=== PATIENT | female | born 2005 | race Caucasian/White ===

== ENCOUNTER 2023-08-04 12:03 | Outpatient (OUT) | payer OTHER, SELFPAY | END 2023-08-04 12:04 | disposition home or self-care (01) | LOC: LAB 12:08 | PROVIDERS: PCP Family Medicine; Visit Provider Midwife | DX: O26.892 Other specified pregnancy related conditions, second trimester (principal); Z67.91 Unspecified blood type, Rh negative | CPT/HCPCS: 36415; 86850; 86900; 86901 ==

== ENCOUNTER 2023-08-09 10:29 | Outpatient (OUT) | payer OTHER, SELFPAY ==
[2023-08-08 09:15] VITALS: BP 107/70; PULSE 73; RESP 16; TEMP 36.4; O2SAT 98
[2023-08-08] MEDS: RHO(D) IMMUNE GLOBULIN 1,500 UNIT SYRINGE 1500 UNIT IM (09:31)
--- NOTE | 2023-08-08 09:50 | PC.NURSE ---
0931: Pt. medicated with Rhophylac 300mcg IM as ordered. Trace bleeding to injection site. Bandaid applied. Pt. given explanation on purpose of Rhogam, questions addressed. Pt. given water. Reminded of need for brief observation after injection. Pt. relays understanding. 0950: Pt. without s&s of adverse reaction. No new bleeding to injection site. Pt. d/c'd amb. to home.
== END 2023-08-09 10:30 | disposition home or self-care (01) ==
LOC: INF 10:29
PROVIDERS: PCP Family Medicine; Visit Provider Midwife
DX: O26.899 Other specified pregnancy related conditions, unspecified trimester (principal); Z67.91 Unspecified blood type, Rh negative; Z3A.00 Weeks of gestation of pregnancy not specified
CPT/HCPCS: 96372; J2790

== ENCOUNTER 2023-10-19 23:01 | Inpatient (IN) | payer OTHER, SELFPAY ==
[2023-10-19 23:05] VITALS: BP 111/70; PULSE 98
[2023-10-19 23:12] VITALS: BP 110/73; PULSE 93; TEMP 37.3
[2023-10-19 23:41] VITALS: BP 121/66; PULSE 86
[2023-10-19] MEDS: 0.9 % SODIUM CHLORIDE 1,000 ML 125 ML IV (23:43)
[2023-10-19 23:56] LABS: Hematocrit 33.4 % (36.0-48.0); Hemoglobin 11.3 g/dL (12.0-16.0); Mean Corpuscular HGB Conc 33.8 g/dL (29.9-35.2); Mean Corpuscular Hemoglobin 30.1 pg (26.7-34.0); Mean Corpuscular Volume 89.1 fL (81.0-99.0); Mean Platelet Volume 9.4 fL (9.5-13.5); Platelet Count 315 10^3/uL (150-450); Red Blood Count 3.75 10^6/uL (4.20-5.40); Red Cell Distribution Width 13.4 % (11.0-15.0); White Blood Count 16.6 10^3/uL (4.0-11.0)
[2023-10-20] VITALS (21 sets, daily range): BP systolic 106–126; BP diastolic 55–74; PULSE 80–109; RESP 16–17; TEMP 36.3–37.3
[2023-10-20] MEDS: OXYTOCIN/0.9 % SODIUM CHLORIDE 20 UNITS/1,000 ML PLAST..BAG 125 UNIT IV (01:31)
[2023-10-20] MEDS: METHYLERGONOVINE MALEATE 0.2 MG/ML AMPULE IM (01:35)
[2023-10-20] MEDS: LIDOCAINE HCL 1% 200 MG/20 ML MDV INJ (01:39)
[2023-10-20] MEDS: LIDOCAINE VISCOUS 2% 15 ML SOLUTION 5 ML TOPICAL (01:40)
--- NOTE | 2023-10-20 02:05 | P.OBHP_ITS ---
OB - H&P: HPI History of Present Illness Chief complaint: labor : 1 Para: 0 Gestational age based on last menstrual period: 39.3 History of Present Dating criteria: LMP confirmed by 1st trimester US care: good care Ultrasounds: normal 1st trimester US and normal mid trimester US complications comment: none Medical complications OB: none Labs Blood type: A (-) negative Rubella: immune RPR/VDLR: nonreactive GBS status: negative HBsAG: negative Review of Systems ROS Status of ROS 10 or more systems reviewed and unremarkable except as noted in history and below Meds Home Medications and Allergies Allergies Allergy/AdvReac Type Severity Reaction Status Date / Time amoxicillin Allergy Mild Rash Verified 10/20/23 01:44 Exam Constitutional Vital Signs, click to edit/add: Last Vital Signs Temp 99.1 F 10/20/23 01:37 Pulse 104 H 10/20/23 01:54 BP 123/72 10/20/23 01:54 Documenting provider has reviewed patient's vital signs: yes General appearance: cooperative and comfortable Orientation/consciousness: Yes awake, Yes oriented to person, Yes oriented to place and Yes oriented to time HENMT Common normals: normocephalic Eye Common normals: PERRL Neck & C-Spine Common normals: full ROM and no lymphadenopathy Lymph Lymphatic: no lymphadenopathy noted Chest Common normals: inspection of chest normal Respiratory Common normals: normal respiratory effort, no retractions and clear to auscultation bilaterally Cardio Common normals: regular rate, regular rhythm and no murmurs GI Common normals: Normal to inspection, nondistended, normoactive bowel sounds pr esent Palpation: soft Common normals: no CVA tenderness Back & Pelvis Common normals: no CVA tenderness Extremity Common normals: normal to inspection, full ROM and no calf tenderness Neuro Common normals: oriented x3 and moves all extremities Sensorium/orientation: awake, alert, oriented to person, oriented to place and oriented to time Psych Common normals: mental status grossly normal, thought process normal and cooperative Results Labs Labs: Short CBC 10/19/23 Range/Units 23:50 WBC 16.6 H (4.0-11.0) 10^3/uL Hgb 11.3 L (12.0-16.0) g/dL Hct 33.4 L (36.0-48.0) % Plt Count 315 (150-450) 10^3/uL OB - A/P Assessment and Plan (1) Term : Plan Admit for labor and delivery
[2023-10-20] MEDS: KETOROLAC TROMETHAMINE 30 MG/ML VIAL IVP (02:19)
--- NOTE | 2023-10-20 02:23 | P.EN_ITS ---
Event Note Event Note: 2313 10-19-23 phone call to my cell from [facility] stating one of your patients is here, she arrived by squad. She had intercourse tonight at 8:00 pm and around 10:00 pm states she went to the bathroom and her water broke. She started immediately with contractions and family became nervous and called 911 and the EMS squad brought her to the hospital. RN reports to me that patient is 6-7/100/-1 and would like to me come to the hospital. CNM to unit and patient assessed. SVE complete with strong desire to push. See delivery note
--- NOTE | 2023-10-20 02:27 | PM.OBPRCVD ---
Procedure Procedure: with repair of second degree perineal laceration and repair of bilateral labial Induction method: none Delivery monitor: external FHT and external uterine Route of delivery: Episiotomy Description: none Laceration description: labial (bilateral labial repair) Delivery repair: Vicryl Estimated blood loss (mL): 350 Anesthesia type: Local Disposition: no change Complications: IV was not running at delivery so unable to administer IV Pitocin. RN attempted to restart IV x2. I ordered IM Methergine 0.2 mg. IV then restarted in her right forearm and Pitocin infusing without difficulty. Infant Delivery date: 10/19/23 Gender: female presentation: vertex Placental delivery description: Spontaneous cord description: 3 Vessels heart rate - 1 minute: 100 bpm or Greater respiratory effort - 1 minute: Spontaneous/Strong Cry muscle tone - 1 minute: Active Movement reflex response - 1 minute: Prompt Response color - 1 minute: Pallor or Cyanosis total score - 1 minute: 8 heart rate - 5 minute: 100 bpm or Greater respiratory effort - 5 minute: Spontaneous/Strong Cry muscle tone - 5 minute: Active Movement reflex response - 5 minute: Prompt Response color - 5 minute: Bluish Hands or Feet total score - 5 minute: 9
[2023-10-20] MEDS: BENZOCAINE/MENTHOL 85 GRAM SPRAY BOTTLE 1 APPLIC TOPICAL (05:17)
[2023-10-20] MEDS: GLYCERIN/WITCH HAZEL PADS 1 PAD TOPICAL (05:18)
[2023-10-20] MEDS: IBUPROFEN 400 MG TABLET 800 MG PO ×2 (10:38→17:40)
[2023-10-20 11:03] LABS: Cannabinoid Screen Urine NEGATIVE (NEGATIVE); Cocaine Screen Urine NEGATIVE (NEGATIVE); Methamphetamines Screen Urine NEGATIVE (NEGATIVE); Opiate Screen Urine NEGATIVE (NEGATIVE); Phencyclidine Screen Urine NEGATIVE (NEGATIVE)
[2023-10-20 11:04] LABS: Amphetamine Screen Urine NEGATIVE (NEGATIVE); Barbiturates Screen Urine NEGATIVE (NEGATIVE); Benzodiazepines Screen Urine NEGATIVE (NEGATIVE); Buprenorphine Screen Urine NEGATIVE (NEGATIVE); Methadone Screen Urine NEGATIVE (NEGATIVE); Oxycodone Screen Urine NEGATIVE (NEGATIVE); Tricyclic Antidepressant Urine NEGATIVE (NEGATIVE)
[2023-10-21] MEDS: IBUPROFEN 400 MG TABLET 800 MG PO (03:55)
[2023-10-21 05:08] LABS: Basophils Absolute Auto 0.1 10^3/uL (0.0-0.1); Basophils Percent Auto 0.4 % (0.2-2.0); Eosinophils Absolute Auto 0.2 10^3/uL (0.0-0.7); Eosinophils Percent Auto 1.4 % (0.9-7.0); Hematocrit 29.8 % (36.0-48.0); Hemoglobin 9.7 g/dL (12.0-16.0); Immature Granulocytes Abs Auto 0.09 10^3/uL (0.00-0.03); Immature Granulocytes Pct Auto 0.7 % (0.0-0.5); Lymphocytes Absolute Auto 3.7 10^3/uL (1.2-3.8); Mean Corpuscular HGB Conc 32.6 g/dL (29.9-35.2); Mean Corpuscular Hemoglobin 29.8 pg (26.7-34.0); Mean Corpuscular Volume 91.7 fL (81.0-99.0); Mean Platelet Volume 9.6 fL (9.5-13.5); Monocytes Absolute Auto 0.9 10^3/uL (0.3-0.8); Neutrophils Absolute Auto 8.2 10^3/uL (1.4-6.5); Neutrophils Percent Auto 62.5 % (43.0-75.0); Platelet Count 268 10^3/uL (150-450); Red Blood Count 3.25 10^6/uL (4.20-5.40); Red Cell Distribution Width 13.8 % (11.0-15.0)
--- NOTE | 2023-10-21 07:28 | P.OBPN_ITS ---
OB - PN: Subj Subjective Patient comments: no complaints and pain well controlled [place] status: doing well Exam Constitutional Vital Signs, click to edit/add: Last Vital Signs Temp 98.1 F 10/20/23 23:30 Pulse 80 10/20/23 23:38 Resp 16 10/20/23 23:30 BP 106/58 10/20/23 23:38 O2 Del Method Room Air 10/20/23 23:30 Documenting provider has reviewed patient's vital signs: yes Common normals: no apparent distress Respiratory Common normals: normal respiratory effort and clear to auscultation bilaterally Cardio Common normals: regular rate and regular rhythm GI Common normals: Normal to inspection, nondistended, normoactive bowel sounds present Extremity Common normals: no clubbing, cyanosis or edema Results Labs Labs: Short CBC 10/21/23 Range/Units 04:47 WBC 13.0 H (4.0-11.0) 10^3/uL Hgb 9.7 L (12.0-16.0) g/dL Hct 29.8 L (36.0-48.0) % Plt Count 268 (150-450) 10^3/uL OB - PN: A/P Assessment and Plan (1) Term : Plan - Vaginal Delivery day: 1 Plan: routine care Time Spent with Patient Time: Total time spent is greater than 50% in coordination of care (as documented) at patient's floor/unit and/or counseling patient: Total time spent with greater than 50% in coordination of care (as documented) at patient's floor/unit and/or counseling patient: less than 15 minutes
[2023-10-21 09:22] VITALS: BP 124/58; PULSE 89; RESP 16; TEMP 36.4
[2023-10-21] MEDS: DOCUSATE SODIUM 100 MG CAPSULE PO ×2 (09:25→21:36)
[2023-10-21 16:34] VITALS: BP 96/55; PULSE 109; RESP 16; TEMP 36.4
--- NOTE | 2023-10-21 19:33 | W.PC.ACHO ---
Registration Status: ADM IN Primary Language: Iraqi Preferred Language: Iraqi Active Medications Generic Name Dose Route Start Last Admin Trade Name Freq PRN Reason Stop Dose Admin Acetaminophen 650 mg 10/20/23 02:35 Acetaminophen 325 Mg Tablet PO Q6H PRN Mild Pain Al Hydroxide/Mg Hydroxide 2,400 mg 10/20/23 02:40 Magnesium Hydroxide 2,400 Mg/10 Ml Oral.Susp PO Q6H PRN Dyspepsia Benzocaine/Menthol 1 applic 10/20/23 02:40 10/20/23 05:17 Benzocaine/Menthol 85 Gram [place] Bottle TOPICAL 1 applic Q2H PRN Administration Pain Diphtheria/Pertussis/Tetanus Vacc 0.5 ml 10/22/23 09:00 Adacel Diph,Pertuss(Acell),Tet Vac/Pf 0.5 Ml Adult Syringe IM 10/22/23 09:01 .ONCE ONE Docusate Sodium 100 mg 10/21/23 09:00 10/21/23 09:25 Docusate Sodium 100 Mg Capsule PO 100 mg BID ROXANNE Administration Sodium Chloride 1,000 mls @ 125 mls/hr 10/19/23 23:30 10/19/23 23:43 Sodium Chloride 0.9% 1,000 Ml IV 125 mls/hr .Q8H ROXANNE Administration Ibuprofen 800 mg 10/20/23 10:00 10/21/23 03:55 Ibuprofen 400 Mg Tablet PO 800 mg Q8H ROXANNE Administration Measles/Mumps/Rubella Vaccine Live 0.5 ml 10/22/23 09:00 Measles,Mumps,Rubella Vacc/Pf 0.5 Ml Vial SQ 10/22/23 09:01 .ONCE ONE Ondansetron HCl 4 mg 10/19/23 23:21 Ondansetron Pf 4 Mg/2 Ml Vial IV Q6H PRN Nausea And Vomiting Ondansetron HCl 4 mg 10/19/23 23:21 Ondansetron 4 Mg Rapdis Tablet SL Q6H PRN Nausea And Vomiting Senna 17.2 mg 10/20/23 20:00 Sennosides 8.6 Mg Tablet PO QHS PRN Constipation Simethicone 80 mg 10/20/23 02:40 Simethicone 80 Mg Tab.Chew PO QID PRN Abdominal Distention Temazepam 15 mg 10/20/23 02:40 Temazepam 15 Mg Capsule PO QHS PRN Sleep Witch Gris/Glycerin 1 pad 10/20/23 02:40 10/20/23 05:18 Glycerin/Witch Gris Pads TOPICAL 1 pad Q2H PRN Administration Pain Respiratory Oxygen Delivery Method Room Air Oxygen Delivery Method Room Air Bowels Bowel Pattern No Bowel Movement
[2023-10-21 23:27] VITALS: BP 117/70; PULSE 104
[2023-10-21 23:42] VITALS: RESP 16; TEMP 37.2
--- NOTE | 2023-10-22 07:18 | PC.NURSE ---
Report given to Kate Arndt RN
[2023-10-22 08:24] VITALS: BP 113/56; PULSE 87
[2023-10-22 08:25] VITALS: RESP 14; TEMP 36.7
--- NOTE | 2023-10-22 09:06 | P.OBPN_ITS ---
OB - PN: Subj Subjective Patient comments: no complaints and pain well controlled [place] status: doing well Exam Constitutional Vital Signs, click to edit/add: Last Vital Signs Temp 98.1 F 10/22/23 08:25 Pulse 87 10/22/23 08:24 Resp 14 10/22/23 08:25 BP 113/56 10/22/23 08:24 O2 Del Method Room Air 10/22/23 08:25 Documenting provider has reviewed patient's vital signs: yes Common normals: no apparent distress Respiratory Common normals: normal respiratory effort and clear to auscultation bilaterally Cardio Common normals: regular rate and regular rhythm GI Common normals: Normal to inspection, nondistended, normoactive bowel sounds present Extremity Common normals: no clubbing, cyanosis or edema and no calf tenderness OB - PN: A/P Assessment and Plan (1) Term : Plan - Vaginal Delivery day: 2 Plan: routine care, discharge home and follow up 6 weeks Time Spent with Patient Time: Total time spent is greater than 50% in coordination of care (as documented) at patient's floor/unit and/or counseling patient: Total time spent with greater than 50% in coordination of care (as documented) at patient's floor/unit and/or counseling patient: less than 15 minutes
== END 2023-10-22 13:20 | disposition home or self-care (01) | DRG 560 ==
PROVIDERS: Admitting Provider Midwife; PCP Family Medicine; Visit Provider Midwife
DX: O26.893 Other specified pregnancy related conditions, third trimester (principal); O70.1 Second degree perineal laceration during delivery; Z3A.39 39 weeks gestation of pregnancy; Z37.0 Single live birth; Z67.11 Type A blood, Rh negative
CPT/HCPCS: 36415; 80307; 85025; 85027; 86850; 86900; 86901; 96372; 96374; 96375

== ENCOUNTER 2023-10-24 08:24 | Outpatient (OUT) | payer OTHER, SELFPAY ==
--- NOTE | 2023-10-24 17:23 | PC.NURSE ---
New family arrives for follow up. Parents admit to being tired and she doesn't like to be put down States has good support at home so are managing well. Mom has no physical complaints and assessment WNL. Milk came in sometime during the night Breasts are firm full feeling and softer after feeding . Type II breast shape noted at this time. States breasts got a little bit bigger, and nipples bigger and darker color Breasts noted to have multiple stretch villalobos had them since started developing Infant assessment WNL. 4 wets and 2 dk brown/green stools flagstone layer than yesterday Feeds every 2-3 hours, 1 breast at each feed for 15-20 minutes. bunch feeds from 8-12mn and sleeps until 4 am last 2 nights. Parents encouraged to schedule PEDS visit with PCP Dr Figueroa for infant to be seen this week. discusses 10.9% weight loss with parents. Encouraged to feed from both breasts at each feeding, latches well, multiple swallows noted. Baby comes off breast, burps and begins to root. Parents states this is when they hold and rock her until she sleeps. again encourages baby to feed from both breasts. Mom returned baby to breast nursed total of . Baby comes off, drowsy, content and no crying or rooting. Parents pleased with changed behavior of baby Parents voice understanding of education and states will continue to feed 2 sides each feeding. No further concerns or questions. Parents will follow up with Dr Figueroa this week and return for support 10/30/2023 for weight check and support.
[2023-10-24 17:26] VITALS: BP 114/60; PULSE 100; RESP 18; TEMP 36.6; O2SAT 97
== END 2023-10-24 15:50 | disposition home or self-care (01) ==
PROVIDERS: PCP Family Medicine; Visit Provider Obstetrics & Gynecology
DX: Z39.2 Encounter for routine postpartum follow-up (principal)